=== PATIENT | female | born 1995 | race Two or more races ===

== ENCOUNTER → 2020-11-23 | Outpatient (CLI) | payer SELFPAY | LOC: EDBD 14:26 → M LABSMTC 14:26 | PROVIDERS: ATTEND Pediatrics | DX: Z20.822 Contact with and (suspected) exposure to COVID-19 (principal) ==

== ENCOUNTER → 2020-12-05 | Outpatient (CLI) | payer SELFPAY | LOC: M LABSMTC 13:48 | PROVIDERS: ATTEND Pediatrics | DX: Z20.828 Contact with and (suspected) exposure to other viral communicable diseases (principal) ==

== ENCOUNTER → 2021-05-08 | Outpatient (CLI) | payer OTHER ==
--- NOTE | 2021-05-08 08:24 | PFTRPT ---
Site: [facility], [address] [place] [address], [id number] ID: [id number] Name: AMARA KERN Visit Date: 05/08/2021 Second ID: [id number] Referring Doctor: Erin Leon Reviewing Doctor: Serjio Xavier MD [employer]: Natasha MAURICE RRT Age: 26 : 1995 Sex: Female Race: Height: 64.00 Inches Weight: 135.00 Lbs BSA: 1.66 Order IDs: [id number] Requested Test(s): <RESP-PFT.PFT B/A> Diagnosis: SOB test appear to be valid, although the ATS standard for "end of test" was not met. Pt was given four puffs of albuterol for post bronchodilator. Review Status: Not Reviewed Pre-Bronch Post-Bronch Pred Actual %Pred Actual %Chng SPIROMETRY FVC (L) 3.79 3.81 100 3.73 -2 FEV1 (L) 3.27 3.48 106 3.59 3 FEV1/FVC (%) 86 91 106 96 5 FEF 25% (L/sec) 5.84 5.24 89 5.63 7 FEF 50% (L/sec) 4.67 4.47 95 5.19 16 FEF 75% (L/sec) 2.03 2.96 146 3.89 31 FEF 25-75% (L/sec) 3.63 4.23 116 4.97 17 FEF Max (L/sec) 6.92 6.33 91 7.24 14 FIVC (L) 3.59 3.57 FIF 50% (L/sec) 4.07 4.41 108 4.97 12 FIF Max (L/sec) 4.42 5.16 16 MVV (L/min) 112 90 80 Expiratory Time (sec) 6.22 2.30 -63 Back Extrap Vol (L) 0.13 0.17 35 Time To FEFmax (sec) 0.199 0.222 11 LUNG VOLUMES SVC (L) 3.78 3.65 96 IC (L) 2.30 3.20 139 ERV (L) 1.48 0.45 30 TGV (L) 2.75 2.74 99 RV (Pleth) (L) 1.27 2.29 180 TLC (Pleth) (L) 5.05 5.95 117 RV/TLC (Pleth) (%) 24 39 160 DIFFUSION DLCOunc (ml/min/mmHg) 25.59 25.69 100 DL/VA (ml/min/mmHg/L) 5.07 5.34 105 VA (L) 5.05 4.81 95 BHT (sec) 9.65 IVC (L) 3.58 TLC (SB) (L) 4.96 AIRWAYS RESISTANCE Raw (cmH2O/L/s) 1.86 1.03 55 Gaw (L/s/cmH2O) 1.03 1.02 98 sRaw (cmH2O*s) 4.76 3.01 63 sGaw (1/cmH2O*s) 0.20 0.36 181
== END ==
LOC: M CARPUL 07:49
PROVIDERS: ATTEND Nurse Practitioner
DX: R06.02 Shortness of breath (principal)